=== PATIENT | male | born 1985 | race Caucasian/White ===

== ENCOUNTER 2018-10-14 07:45 | Observation (INO) | payer BC, OTHER ==
[~2018-10-14 07:45] MED LIST: Bupivacaine 0.5% 50 ML MDV ONE; Dexamethasone 4 MG/ML SDV ONE; Glycopyrrolate 0.2 MG/ML 5 ML MDV ONE; Lidocaine 1% with EPINEPHrine 1:100,000 50 ML MDV ONE; Neostigmine Methylsulfate 1 MG/ML 5 ML Syringe ONE; Ondansetron 4 MG/2 ML SDV ONE; Propofol 200 MG/20 ML SDV ONE; Rocuronium 50 MG/5 ML Vial ONE; Sodium Chloride 0.9% 1,000 ML IV SCH; Succinylcholine 200 MG/10 ML MDV ONE; fentaNYL 250 MCG/5 ML SDV ONE
[2018-10-14] MEDS ORDERED: ceFAZolin 2 GM in Premix Bag 1 BAG IV ONE (09:00)
[2018-10-14] MEDS ORDERED: metroNIDAZOLE/Normal Saline 500 MG in Premix Bag 1 BAG IV ONE (09:00)
[2018-10-14] MEDS ORDERED: ceFAZolin 2 GM in Sodium Chloride 0.9% 100 ML IV ONE (09:00)
[2018-10-14] MEDS ORDERED: Ropivacaine 44 ML, Dexamethasone 8 MG, EPINEPHrine 0.4 MG, Sodium Chloride 0.9% 33.6 ML NERVRT SCH ×4 (09:15)
--- NOTE | 2018-10-14 11:43 | OR ---
DATE OF PROCEDURE: 10/14/2018 PROCEDURE: Transversus abdominis plane block, bilateral. COMPLICATIONS: None. MANUFACTURING SR ENGINEER: None. INDICATIONS: Requirement for postoperative pain management. PROCEDURE IN DETAIL: The patient was placed in supine position. The right side was identified first. The transversus plane was identified. Approximately, 50 mL of this solution was injected. This was under direct guidance. No abnormalities were noted during entry. Left side was then performed in same manner, same fashion, same sequence, and using the same technique, except for different needle and syringe, same volume. The patient tolerated the procedure well. Yaron Bearden MD /[id number]
--- NOTE | 2018-10-14 12:13 | OR ---
DATE OF PROCEDURE: 10/14/2018 PROCEDURE: NEMO hernia, left, converted to open hernia. FINDINGS: 1. Significant amount of inflammation and scar tissue. 2. Indirect inguinal hernia. COMPLICATIONS: None. INSIDE SALES ACCOUNT REPRESENTATIVE: None. ANESTHESIA: General/local. RISKS: Risks, benefits, alternatives, and limitations including, but not limited to infection, bleeding; injury to testicular structures, bowel, or bladder; possibility of open surgery, seroma formation, hematoma formation, and other risks were explained to the patient preoperatively again. They understand these risks and wished to proceed. PROCEDURE IN DETAIL: The patient was placed in supine position. An infraumbilical incision was made, and this was dissected down to the anterior fascia. This was then opened. The preperitoneal space was identified and a Pean was used to open the space further. The dissecting balloon was introduced under direct visualization to the pubic symphysis and was insufflated. The insufflation did not proceed as typical due to a significant amount of inflammation on the left side and midline. The balloon was then removed, and the preperitoneal space was insufflated. Two additional 5 mm ports were entered under direct visualization. It was immediately evident that, due to that inflammation/scarring, the typical dissection plane had not dissected. Attempts were made to further enhance this plane, but due to that inflammation and scar tissue, this would be terminated and converted to an open procedure. The left inguinal hernia would be opened in a classic fashion, about a 5-cm incision was made. Dissection was then carried down to the external oblique aponeurosis. This was then opened with electrocautery. Dissection of the cord structures was then commenced, and the cord structures were identified and surrounded with a [place] drain. The hernia itself was already deflected due to the insufflation, was identified. An extra-large plug and patch was then sutured in an interrupted fashion. This was done with 0 Vicryl in approximately 1 cm increments. The external oblique aponeurosis was then sutured without difficulty. Subcutaneous tissues were closed with 3-0 Vicryl. Skin was closed with 4-0 Vicryl. Dermabond was applied. The fascia from the laparoscopic approach was then closed with 0 Vicryl in a running fashion x2. All other abdominal port sites were closed with 3-0 Vicryl, 4-0 Vicryl, and Dermabond. The patient tolerated the procedure well. Yaron Bearden MD /[id number]
[2018-10-14] MEDS: Acetaminophen/HYDROcodone 325-5 MG Tab PO PRN ×3 (13:37→19:47)
[2018-10-14] MEDS ORDERED: diphenhydrAMINE 50 MG/ML SDV IVPUSH PRN (19:05)
[2018-10-15] MEDS: Acetaminophen/HYDROcodone 325-5 MG Tab PO PRN ×3 (00:14→10:06)
== END 2018-10-15 13:00 | disposition home or self-care (01) ==
LOC: JP.SDS 07:45 → JP.MS 16:30 → JP.SDS 16:41 → JP.MS 16:41
PROVIDERS: ADMIT Surgery; ATTEND Surgery
DX: K40.90 Unilateral inguinal hernia, without obstruction or gangrene, not specified as recurrent (principal); Z53.31 Laparoscopic surgical procedure converted to open procedure; K66.0 Peritoneal adhesions (postprocedural) (postinfection)
CPT/HCPCS: 49505; A9270; C1781; J0171; J0690; J1100; J2405; J2704; J2710; J2795; J3010; J3490; J7030; J7050; J0330

== ENCOUNTER 2020-04-14 22:39 | Emergency (ER) | payer OTHER ==
[2020-04-14] MEDS ORDERED: methylPREDNISolone Sodium Succinate 125 MG/2 ML SDV IM ONE (23:20)
--- NOTE | 2020-04-14 23:26 | EDM.PDOC ---
ED HPI GENERAL MEDICAL PROBLEM - General Chief Complaint: Bite:Animal, Insect Stated Complaint: BEE STING Time Seen by Provider: 04/14/20 23:18 Source of Information: Reports: Patient, RN Notes Reviewed History Limitations: Reports: No Limitations - History of Present Illness INITIAL COMMENTS - FREE TEXT/NARRATIVE: Sai presents tonight with complaints of bee sting to his ankle around 1930 today. He reports he developed large and painful hives to the right neck, right arm and leg and felt tightness to his throat. He took benadryl 50mg PO at 0. He reports this helped the edema. 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 His epi pen was outdated today and he did not use. it. He denies any other complaints, difficulty breathing or concerns. denies Pain Score (Numeric/FACES): 0 - Related Data Allergies Allergy/AdvReac Type Severity Reaction Status Date / Time venom-honey bee Allergy Severe Airway Verified 04/14/20 22:51 [bee venom (honey bee)] Tightness Home Meds: Home Meds EPINEPHrine [Epinephrine] 0.3 ml IM ASDIRECTED 10/12/18 [History] Past Medical History HEENT History: Reports: Epistaxis Other HEENT History: Lasik, bilateral. - Infectious Disease History Infectious Disease History: Reports: Chicken Pox - Past Surgical History Head Surgeries/Procedures: Reports: None HEENT Surgical History: Reports: LASIK, Naso-Sinus Surgery Male Surgical History: Reports: None Social & Family History - Family History Cardiac: Reports: AL, Pacemaker, Stent : Reports: Renal Calculus Musculoskeletal: Reports: Other (See Below) Other Musculoskeletal Family History: MS - Tobacco Use Smoking Status *Q: Never Smoker Second Hand Smoke Exposure: No - Caffeine Use Caffeine Use: Reports: Energy Drinks - Alcohol Use Days Per Week of Alcohol Use: 2 Number of Drinks Per Day: 3 Total Drinks Per Week: 6 - Recreational Drug Use Recreational Drug Use: No ED ROS GENERAL - Review of Systems Review Of Systems: See Below Constitutional: Reports: No Symptoms HEENT: Reports: No Symptoms Respiratory: Reports: No Symptoms Cardiovascular: Reports: No Symptoms : Reports: No Symptoms Musculoskeletal: Reports: Arm Pain, Other (right arm pain at sight of large hive/edema) Skin: Reports: Urticaria Neurological: Reports: No Symptoms Psychiatric: Reports: No Symptoms Hematologic/Lymphatic: Reports: No Symptoms Immunologic: Reports: No Symptoms ED EXAM, ANIMAL BITE - Physical Exam Exam: See Below Exam Limited By: No Limitations General Appearance: Alert, WD/WN, No Apparent Distress Throat/Mouth: Normal Inspection, Normal Lips, Normal Teeth, Normal Gums, Normal Oropharynx, No Airway Compromise Head: Atraumatic, Normocephalic Neck: Normal Inspection, Supple, Full Range of Motion, Lymphadenopathy (R), Other (urticaria right neck). No: Lymphadenopathy (L) Respiratory/Chest: No Respiratory Distress, Lungs Clear, Normal Breath Sounds, No Accessory Muscle Use, Chest Non-Tender Cardiovascular: Normal Peripheral Pulses, Regular Rate, Rhythm, No Edema, No Gallop, No Murmur, No Rub Peripheral Pulses: 2+: Radial (L), Radial (R) Back Exam: Normal Inspection, Full Range of Motion. No: CVA Tenderness (R), CVA Tenderness (L) Extremities: Normal Range of Motion, Non-Tender, No Pedal Edema, Normal Capillary Refill, Other (large urticaria/hive to right forearm with significant edema) Neurological: Alert, Oriented, CN II-XII Intact, Normal Cognition, Normal Gait, Normal Reflexes, No Motor/Sensory Deficits Psychiatric: Normal Affect, Normal Mood Skin Exam: Other (urticaria right arm, right neck. Bee sting to right inner ankle with surrounding urticaria) Lymphadenopathy: Right: Submental Adenopathy, Cervical Adenopathy, Left: No Adenopathy Course - Vital Signs Last Recorded V/S: Last Vital Signs Temp 35.6 C L 04/14/20 22:50 Pulse 78 04/14/20 22:50 Resp 16 04/14/20 22:50 BP 154/88 H 04/14/20 22:50 Pulse Ox 98 04/14/20 22:50 - Orders/Labs/Meds Meds: Medications Discontinued Medications Generic Name Dose Route Start Last Admin Trade Name Freq PRN Reason Stop Dose Admin Methylprednisolone Sodium Succinate 125 mg 04/14/20 23:20 Solu-Medrol IM 04/14/20 23:21 ONETIME ONE Departure - Departure Time of Disposition: 23:23 Disposition: Home, Self-Care 01 Condition: Good Clinical Impression: [id number], Bee sting reaction - Discharge Information Instructions: Bee, Wasp, or Hornet Sting, Adult Referrals: PCP,None [Primary Care Provider] - Forms: ED Department Discharge Additional Instructions: You have been evaluated and treated for angio-edema,urticaria secondary to a bee sting. No airway compromise noted. Solumedrol 125mg IM in the emergency room. Continue benadryl 50mg PO every 8 hours until hives/edema resolves. Hard copy script for epi pen provided. Return for any issues, concerns or future bee stings with edema/hives/airway compromise. Sepsis Event Note (ED) - Evaluation Sepsis Screening Result: No Definite Risk - Focused Exam Vital Signs: Vital Signs Temp Pulse Resp BP Pulse Ox 04/14/20 22:50 35.6 C L 78 16 154/88 H 98 - Assessment/Plan Assessment:: [id number], Bee sting reaction Plan: Patient evaluated and treated for angio-edema,urticaria secondary to a bee sting. No airway compromise noted. Solumedrol 125mg IM in the emergency room. Continue benadryl 50mg PO every 8 hours until hives/edema resolves. Hard copy script for epi pen provided. Return for any issues, concerns or future bee stings with edema/hives/airway compromise
[2020-04-14] MEDS ORDERED: methylPREDNISolone Sodium Succinate 125 MG/2 ML SDV ONE (23:35)
== END 2020-04-14 23:40 | disposition home or self-care (01) ==
LOC: JP.ED 22:39
DX: T63.441A Toxic effect of venom of bees, accidental (unintentional), initial encounter (principal); T78.3XXA Angioneurotic edema, initial encounter
CPT/HCPCS: 96372; 99282; J2930

== ENCOUNTER 2021-12-07 21:38 | Emergency (ER) | payer OTHER ==
[2021-12-07] MEDS ORDERED: Bacitracin Oint 1 GM U/D Packet TOP ONE (22:19)
== END 2021-12-07 22:44 | disposition home or self-care (01) ==
LOC: JP.ED 21:38
DX: S00.83XA Contusion of other part of head, initial encounter (principal); T23.172A Burn of first degree of left wrist, initial encounter; T23.171A Burn of first degree of right wrist, initial encounter; S60.811A Abrasion of right wrist, initial encounter; S80.811A Abrasion, right lower leg, initial encounter; Z91.030 Bee allergy status; V49.40XA Driver injured in collision with unspecified motor vehicles in traffic accident, initial encounter; Y92.410 Unspecified street and highway as the place of occurrence of the external cause
CPT/HCPCS: 99283